=== PATIENT | male | born 1970 | race Caucasian/White ===

== ENCOUNTER → 2016-10-24 | Day surgery (SDC) | payer OTHER ==
[~2016-10-24] VITALS: Ht 172.7 cm; Wt 81.6 kg
[~2016-10-24] MED LIST: CEPHALEXIN500 M1 PO; CIPRO500 MG PO; FLAGYL500 MG PO; KEFLEX500 MG PO; NORCO 325 MG-51 TAB PO; TOBRADEX 0.1%-0.5 ML OPH; VIBRAMYCIN100 MG PO; VICODIN 5/500 505 MG PO; VICODIN 500 MG-1 TAB PO
--- NOTE | ~2016-10-24 | PROC NOTE ---
[place], [place] PROCEDURE NOTE NAME: CITLALI MARMOLEJO UNIT #: [id number] ROOM: DOCTOR: TORSTEN GRAY MD BIRTHDATE: [birth year] DOS: 10/24/2016 PREOPERATIVE DIAGNOSIS: History of colon polyps, diverticulosis. POSTOPERATIVE DIAGNOSES: Diverticulosis, internal hemorrhoids. PROCEDURE: Colonoscopy. ENDOSCOPIST: Torsten Gray MD [employer] WORK[employer] SUPERVISOR: [id number]. ANESTHESIA: MAC. INDICATIONS: This is a 46-year-old gentleman who has had a previous colonoscopy which showed diverticulosis as well as colonic polyps that were removed, who is here for a followup colonoscopy. The procedure and its complications were explained to the patient in detail preoperatively. Complications that were discussed included but were not limited to bleeding, colon perforation, and missed lesions. He agreed to proceed. DESCRIPTION OF PROCEDURE: After identifying the patient, the patient was brought to the endoscopy suite and laid in the left lateral position. After IV sedation was administered, a timeout procedure was called. A digital rectal exam was performed, which was within normal limits. An adult colonoscope was now introduced into the anal canal and advanced sequentially into the rectum, sigmoid colon, descending colon, transverse colon and ascending colon up to the cecum. The prep was found to be optimal. Upon reaching the cecum, the scope was withdrawn. Total withdrawal time was approximately 7 minutes. During the procedure of withdrawal, diverticulosis was visualized in the sigmoid colon, but no evidence of polyps or any other colonic mucosal lesions were visualized. Upon retroflexion of the scope in the rectum, there was found to be internal hemorrhoids, which were uncomplicated. The scope was withdrawn and the patient was brought back to the recovery room in stable fashion. There were no complications. Based on these findings, the patient is recommended to have another colonoscopy in approximately 10 years or sooner if he has any new symptoms, these findings were discussed with the patient's postoperatively. I will talk to the patient regarding these findings in the postoperative period. [place], [place] PROCEDURE NOTE NAME: CITLALI MARMOLEJO UNIT #: [id number] ROOM: DOCTOR: TORSTEN GRAY MD BIRTHDATE: [birth year] Torsten Gray MD CM:PROCNOTE:PROCEDURE NOTE [id number] TORSTEN GRAY MD
[2016-10-24 06:45] VITALS: BP 117/77
[2016-10-24 07:45] VITALS: BP 95/68
[2016-10-24 08:00] VITALS: BP 85/62
[2016-10-24 08:15] VITALS: BP 113/58
== END | disposition home or self-care (01) ==
LOC: SDC 10-20 10:15
DX: Z09 Encounter for follow-up examination after completed treatment for conditions other than malignant neoplasm (principal); K57.30 Diverticulosis of large intestine without perforation or abscess without bleeding; K64.8 Other hemorrhoids; Z86.010 Personal history of colon polyps; F17.210 Nicotine dependence, cigarettes, uncomplicated; Z80.9 Family history of malignant neoplasm, unspecified; Z98.890 Other specified postprocedural states

== ENCOUNTER → 2021-06-03 | Outpatient (CLI) | payer OTHER | END | disposition home or self-care (01) | LOC: COVID19 16:35 | PROVIDERS: ATTEND Internal Medicine | DX: Z20.822 Contact with and (suspected) exposure to COVID-19 (principal) ==

== ENCOUNTER 2022-01-02 14:48 | Emergency (ER) | payer OTHER ==
[~2022-01-02] VITALS: Ht 172.7 cm; Wt 74.8 kg
== END 2022-01-02 17:07 | disposition home or self-care (01) ==
LOC: ED 14:48
DX: T20.40XA Corrosion of unspecified degree of head, face, and neck, unspecified site, initial encounter (principal); X12.XXXA Contact with other hot fluids, initial encounter; Y93.89 Activity, other specified; Y92.89 Other specified places as the place of occurrence of the external cause; Y99.9 Unspecified external cause status

== ENCOUNTER 2022-01-22 17:00 | Emergency (ER) | payer OTHER ==
[~2022-01-22] VITALS: Wt 74.8 kg
[2022-01-22] MEDS ORDERED: AMOXICILLIN500 M2 PO (20:10)
== END 2022-01-22 20:11 | disposition home or self-care (01) ==
LOC: ED 17:00
DX: S01.501A Unspecified open wound of lip, initial encounter (principal); S01.80XA Unspecified open wound of other part of head, initial encounter; F17.200 Nicotine dependence, unspecified, uncomplicated; W50.0XXA Accidental hit or strike by another person, initial encounter; Y93.89 Activity, other specified; Y92.89 Other specified places as the place of occurrence of the external cause; Y99.0 Civilian activity done for income or pay

== ENCOUNTER 2022-09-15 19:11 | Emergency (ER) | payer OTHER ==
[~2022-09-15] VITALS: Ht 172.7 cm; Wt 74.8 kg
[~2022-09-15 19:11] MED LIST changes: +AMOXICILLIN500 M2 PO
[2022-09-15] MEDS ORDERED: VALTREX1000 MG PO (19:53)
== END 2022-09-15 19:58 | disposition home or self-care (01) ==
LOC: ED 19:11
DX: B02.9 Zoster without complications (principal); Z90.49 Acquired absence of other specified parts of digestive tract; Z98.890 Other specified postprocedural states; F17.200 Nicotine dependence, unspecified, uncomplicated